=== PATIENT | male | born 1945 | race African-American/Black ===

== ENCOUNTER 2017-06-18 12:10 | Outpatient (CLI) | payer MEDICARE ==
[2017-06-18 12:53] LABS: Prothrombin Time 23.2 SEC (12.0-14.7)
== END 2017-06-18 12:11 | disposition home or self-care (01) ==
LOC: NAVSJIPCSP 12:10
PROVIDERS: ATTEND Internal Medicine
DX: Z51.81 Encounter for therapeutic drug level monitoring (principal); E78.5 Hyperlipidemia, unspecified; I48.0 Paroxysmal atrial fibrillation; M17.0 Bilateral primary osteoarthritis of knee; I11.9 Hypertensive heart disease without heart failure; Z79.01 Long term (current) use of anticoagulants; Z79.899 Other long term (current) drug therapy
CPT/HCPCS: 85610